=== PATIENT | female | born 1990 | race Caucasian/White ===

== ENCOUNTER 2024-08-21 09:16 | Day surgery (SDC) | payer OTHER, SELFPAY ==
[2024-06-24 09:10] VITALS: BMI 28.5
[2024-08-11 10:48] VITALS: BMI 28.0
--- NOTE | 2024-08-20 16:15 | P.PNAN_ITS ---
Anes - Initial Pre Proc Eval Procedure: Operation Date: 08/21/24 11:00 Proposed Procedures p Diagnostic Colonoscopy - Eric Ludwig MD Date/Time: 08/20/24 16:15 Surgeon: Eric Ludwig MD Pre Op Diagnosis: Family History of Colon Cancer Patient Data Age: 34 Gender: F Height: 1.75 m Weight: 86.3 kg Allergies Allergy/AdvReac Type Severity Reaction Status Date / Time Penicillins Allergy Unknown Verified 08/21/24 09:51 amoxicillin AdvReac Severe Anaphylactic Verified 08/21/24 09:51 Shock Home Medications Medication Instructions Recorded Confirmed Type multivitamin 1 tablet PO DAILY 01/24/23 08/21/24 History metformin 500 mg tablet 500 mg PO DAILY 08/11/24 08/21/24 History norgestimate-ethinyl estradiol 1 tablet PO DAILY 08/11/24 08/21/24 History 0.18 mg/0.215mg/0.25mg-35 mcg(28)tablet (Tri-Sprintec (28)) omega-3 fatty acids-fish oil 684 1 cap PO DAILY 08/11/24 08/21/24 History mg-1,200 mg capsule,delayed release phentermine 37.5 mg tablet 37.5 mg PO DAILY 08/11/24 08/21/24 History vitamin D3 125 mcg (5,000 1 cap PO DAILY 08/11/24 08/21/24 History unit)-vitamin K2 100 mcg capsule Patient hx anesthesia problems: none Family hx anesthesia problems: none Results Review: All pre-operative results and documents have been reviewed as part of the pre- operative evaluation. [facility] Past Medical History Medical History PCOS (polycystic ovarian syndrome) Family History Family History Other Cervical cancer Hypertension Social History Social History Smoking status: Never smoker Second hand tobacco smoke exposure: No Alcohol intake: current Alcohol use details: social Substance use: never Substance use type: does not use Lack of Transportation: No Lack of Food: Never True Current Housing: I Have Housing Concerned About Future Housing: No Difficulty Paying Gas/Electric Bills: No Difficulty Paying for Meds: No Currently Unemployed: No Education: Bachelor's Degree Difficulty w/ Childcare or Family Care: No Living arrangements: with family Occupation/Education: occupation Additional occupation/education comments: ins. rep. Gender identity (if verbalized by the patient): Female Sexual Orientation (if Verbalized by the Patient): Straight or Heterosexual Spiritual care concerns: No Agree to blood products: Yes Anes - Eval Final PreProcedure Day of Procedure 08/20/24 16:15 Patient weight: overweight Heart: regular rate and rhythm Lungs: clear to auscultation Airway: Mallampati scale class II Neurological: alert and oriented Last oral intake: >/= 8 hours ASA classification: II Emergent: no Anesthetic plan: proceed Anesthesia type and monitoring: general GIVS and standard monitoring Results Review: All pre-operative results and documents have been reviewed as part of the pre- operative evaluation. Informed Consent: The patient's anesthetic plan and its attendant risks and benefits were discussed with the patient/family/POA. Questions were solicited and answers provided to the satisfaction of the patient/family/POA.
[2024-08-21 09:52] VITALS: BP 134/84; PULSE 92; RESP 16; TEMP 36.9; O2SAT 100
[2024-08-21 09:53] VITALS: BMI 28.2
[2024-08-21] MEDS: LACTATED RINGERS 1,000 ML 150 ML IV CONT (10:04)
--- NOTE | 2024-08-21 10:40 | PM.HPGS ---
History of Present Illness History of Present Illness Consent: Risks, benefits, and alternatives have been discussed and questions answered. Patient agrees to proceed with procedure. Chief complaint: Family History of Colon Cancer Narrative: Lorelei Gaytan is a 34 year old female referred for colonoscopy. Patient's mother recently diagnosed with colon cancer at age 58. Mother had colon cancer apparently at 3 different times. Before succumbing. Patient reports that her own weight appetite bowel movements are normal. She denies abdominal pain. She has had no bleeding. Review of Systems Review of Systems: All systems reviewed & are unremarkable except as noted in HPI and below PMFSH Past Medical History Medical History PCOS (polycystic ovarian syndrome) Family History Family History Other Cervical cancer Hypertension Social History Social History Smoking status: Never smoker Second hand tobacco smoke exposure: No Alcohol intake: current Alcohol use details: social Substance use: never Substance use type: does not use Lack of Transportation: No Lack of Food: Never True Current Housing: I Have Housing Concerned About Future Housing: No Difficulty Paying Gas/Electric Bills: No Difficulty Paying for Meds: No Currently Unemployed: No Education: Bachelor's Degree Difficulty w/ Childcare or Family Care: No Living arrangements: with family Occupation/Education: occupation Additional occupation/education comments: ins. rep. Gender identity (if verbalized by the patient): Female Sexual Orientation (if Verbalized by the Patient): Straight or Heterosexual Spiritual care concerns: No Agree to blood products: Yes Meds Home Medications and Allergies Home Medications Medication Instructions Recorded Confirmed Type multivitamin 1 tablet PO DAILY 01/24/23 08/21/24 History metformin 500 mg tablet 500 mg PO DAILY 08/11/24 08/21/24 History norgestimate-ethinyl estradiol 1 tablet PO DAILY 08/11/24 08/21/24 History 0.18 mg/0.215mg/0.25mg-35 mcg(28)tablet (Tri-Sprintec (28)) omega-3 fatty acids-fish oil 684 1 cap PO DAILY 08/11/24 08/21/24 History mg-1,200 mg capsule,delayed release phentermine 37.5 mg tablet 37.5 mg PO DAILY 08/11/24 08/21/24 History vitamin D3 125 mcg (5,000 1 cap PO DAILY 08/11/24 08/21/24 History unit)-vitamin K2 100 mcg capsule Allergies Allergy/AdvReac Type Severity Reaction Status Date / Time Penicillins Allergy Unknown Verified 08/21/24 09:51 amoxicillin AdvReac Severe Anaphylactic Verified 08/21/24 09:51 Shock Vital Signs Vital Signs - 24 hr 08/21/24 09:52 Temperature 98.4 F Pulse Rate 92 Respiratory Rate 16 Blood Pressure 134/84 Pulse Oximetry 100 Oxygen Delivery Room Air Exam Narrative: Physical exam reveals patient to be alert. Signs stable. HEENT exam is unremarkable. Patient is anicteric. Auscultation and to percussion heart is without murmur or extra sounds. Abdomen bowel sounds are present soft nontender with no organomegaly. Digital external rectal exam normal. Assessment and Plan Assessment and plan (1) Family history of colon cancer in mother: Code(s): Z80.0 - Family history of malignant neoplasm of digestive organs Status: Acute Assessment and Plan: Patient's mother and grandmother both have had colon cancer. Screening colonoscopy will be performed today.
[2024-08-21 11:27] VITALS: BP 105/67; PULSE 89; RESP 15; O2SAT 100
[2024-08-21 11:37] VITALS: BP 107/78; PULSE 76; RESP 15; O2SAT 100
[2024-08-21 11:47] VITALS: BP 110/69; PULSE 81; RESP 15; O2SAT 100
--- NOTE | 2024-08-21 14:37 | WPDANESPN ---
Anes - Prog Note Post-Op Date/Time: 08/21/24 14:37 Cardiovascular status: normal Respiratory status: normal Airway patency: baseline Mental status: baseline Post-Op hydration status: normal Vital Signs: Last Vital Signs Temp 36.9 C 08/21/24 09:52 Pulse 81 08/21/24 11:47 Resp 15 08/21/24 11:47 BP 110/69 08/21/24 11:47 Pulse Ox 100 08/21/24 11:47 O2 Del Method Room Air 08/21/24 11:47 Pain Score (VAS): 0 I/O: Intake & Output 08/20/24 08/21/24 08/21/24 23:59 07:59 15:59 Intake Total 400 Balance 400 Post-procedural complaints: none Patient Feedback: Patient satisfied with anesthetic care. Other Findings: Patient vital signs back to baseline. Patient denies nausea and vomiting. Patient's pain under control. Patient OK for discharge.
== END 2024-08-21 12:05 | disposition home or self-care (01) ==
PROVIDERS: PCP Family Medicine; Visit Provider Internal Medicine Gastroenterology
PROC: 0DJD8ZZ Inspection of Lower Intestinal Tract, Via Natural or Artificial Opening Endoscopic (ICD-10-PCS; CPT 45378; principal; 2024-08-21 11:00)
DX: Z80.0 Family history of malignant neoplasm of digestive organs (principal); K64.8 Other hemorrhoids
CPT/HCPCS: 45378